=== PATIENT | female | born 1985 | race Caucasian/White ===

== ENCOUNTER 2023-01-25 08:17 | Outpatient (CLI) | payer OTHER, SELFPAY | END 2023-01-25 08:18 | disposition home or self-care (01) | PROVIDERS: PCP Physician Assistant Medical; Visit Provider Family Medicine | DX: Z00.00 Encounter for general adult medical examination without abnormal findings (principal); E05.90 Thyrotoxicosis, unspecified without thyrotoxic crisis or storm; N39.3 Stress incontinence (female) (male); F41.9 Anxiety disorder, unspecified; L50.9 Urticaria, unspecified; F33.9 Major depressive disorder, recurrent, unspecified; Z13.6 Encounter for screening for cardiovascular disorders | CPT/HCPCS: 80053; 80061; 82150; 83036; 83520; 83690; 83695; 84439; 84443; 86140 ==

== ENCOUNTER 2023-04-19 07:56 | Outpatient (CLI) | payer OTHER, SELFPAY | END 2023-04-19 07:57 | disposition home or self-care (01) | LOC: NFLDREF 04-21 11:36 | PROVIDERS: PCP Physician Assistant Medical; Referring Provider Physician Assistant Medical; Visit Provider Family Medicine | DX: E05.90 Thyrotoxicosis, unspecified without thyrotoxic crisis or storm (principal); E78.41 Elevated Lipoprotein(a); R53.83 Other fatigue | CPT/HCPCS: 80061; 84439; 84443; 84481 ==

== ENCOUNTER 2023-08-14 08:26 | Outpatient (REF) | payer OTHER, SELFPAY | END 2023-08-14 08:27 | disposition home or self-care (01) | LOC: NFLDREF 08:26 | PROVIDERS: PCP Physician Assistant Medical; Referring Provider Physician Assistant Medical; Visit Provider Family Medicine | DX: E05.90 Thyrotoxicosis, unspecified without thyrotoxic crisis or storm (principal); E78.41 Elevated Lipoprotein(a) | CPT/HCPCS: 80061; 84439; 84443 ==

== ENCOUNTER 2023-09-12 10:48 | Outpatient (CLI) | payer OTHER, SELFPAY ==
--- NOTE | 2023-09-12 11:00 | US_ITS ---
Patient: SUSAN RUSSO Facility:?[facility] Patient ID:?[id number] Site Patient ID:?[id number]. Site :?[id number] Study:?US-Thyroid -09/12/2023 11:11:45 AM Ordering Physician:TELLO OCHOA Final Report: ADDENDUM CORRECTION: Indications should state: Hyperthyroidism. DM:[id number] 09/13/2023 INDICATION: Hypothyroidism COMPARISON: 09/24/2020 TECHNIQUE: Call scale and color Doppler images were acquired of the thyroid gland. FINDINGS: The thyroid gland demonstrates diffusely heterogeneous echogenicity and has a smooth outer contour. The right lobe measures 5.2 x 1.4 x 2.4 cm and the left lobe measures 5.5 x 1.5 x 2.2 cm in size. Isthmus measures 3 millimeters. There are no suspicious masses or nodules. The color Doppler images demonstrate mildly increased vascularity. There is no evidence of cervical lymphadenopathy or parathyroid mass. IMPRESSION: Diffusely heterogeneous thyroid gland without nodule. Dictated by Fernando Iyer MD @ 09/12/2023 12:36:31 PM Signed by:?Fernando Iyer MD @09/12/2023 12:36:31 PM (Electronic Signature)
== END 2023-09-12 10:49 | disposition home or self-care (01) ==
LOC: US 10:48
PROVIDERS: PCP Physician Assistant Medical; Visit Provider Physician Assistant Medical
DX: E05.90 Thyrotoxicosis, unspecified without thyrotoxic crisis or storm (principal)
CPT/HCPCS: 76536

== ENCOUNTER 2024-08-26 08:29 | Outpatient (CLI) | payer BC, SELFPAY | END 2024-08-26 08:30 | disposition home or self-care (01) | LOC: NFLDREF 08-28 02:57 | PROVIDERS: PCP Physician Assistant Medical; Referring Provider Physician Assistant Medical; Visit Provider Physician Assistant Medical | DX: E05.00 Thyrotoxicosis with diffuse goiter without thyrotoxic crisis or storm (principal); E78.41 Elevated Lipoprotein(a); D64.9 Anemia, unspecified; D72.819 Decreased white blood cell count, unspecified; F41.9 Anxiety disorder, unspecified; N92.0 Excessive and frequent menstruation with regular cycle | CPT/HCPCS: 80053; 80061; 82607; 83540; 83550; 83695; 84443; 84480; 86618 ==

== ENCOUNTER 2024-08-29 12:39 | Outpatient (CLI) | payer BC, SELFPAY ==
[2024-08-29 23:10] LABS: Chlamydia DNA Amplified* NOT DETECTED (No Detected); GC DNA Amplified* NOT DETECTED (No Detected)
[2024-08-31 16:12] LABS: HPV Source Cervix; HPV, High Risk by TMA Not Detected
== END 2024-08-29 12:40 | disposition home or self-care (01) ==
PROVIDERS: PCP Physician Assistant Medical; Visit Provider Physician Assistant Medical
DX: D64.9 Anemia, unspecified (principal); Z12.4 Encounter for screening for malignant neoplasm of cervix
CPT/HCPCS: 87491; 87591; 87624; 87625; 88141; 88142

== ENCOUNTER 2024-09-09 06:58 | Outpatient (CLI) | payer BC, SELFPAY | END 2024-09-09 06:59 | disposition home or self-care (01) | LOC: US 06:59 | PROVIDERS: PCP Physician Assistant Medical; Visit Provider Physician Assistant Medical | DX: N92.0 Excessive and frequent menstruation with regular cycle (principal); R93.89 Abnormal findings on diagnostic imaging of other specified body structures | CPT/HCPCS: 76830; 76856 ==

== ENCOUNTER 2024-10-09 06:06 | Day surgery (SDC) | payer BC, SELFPAY ==
[2024-10-09 06:20] LABS: Ur HCG Qualitative* Negative (Negative)
[2024-10-09 06:44] VITALS: BP 131/85; PULSE 65; RESP 16; TEMP 36.6; O2SAT 99
[2024-10-09 06:45] VITALS: BMI 24.7
[2024-10-09] MEDS: 0.9 % SODIUM CHLORIDE 500 ML 500 ML 100 ML IV (06:56)
[2024-10-09] MEDS: SODIUM CHLORIDE 0.9 % (FLUSH) 10 ML SYRINGE IVF (06:56)
--- NOTE | 2024-10-09 07:07 | W.PM.H&PU ---
History & Physical Update History & Physical Update H&P Reviewed and patient assessed: No changes noted H&P Updates: No interval changes. Consent and plan of care reviewed. Will proceed with planned surgery
[2024-10-09] MEDS: LACTATED RINGERS 1000 ML 1,000 ML 100 ML IV (07:40)
[2024-10-09] MEDS: LIDOCAINE 1%-EPI 1:100,000 20 ML INFILTRATI (07:50)
[2024-10-09 08:10] VITALS: BP 111/62; PULSE 69; RESP 16; TEMP 36.4; O2SAT 99
[2024-10-09 08:15] VITALS: BP 121/72; PULSE 54; RESP 16; O2SAT 99
--- NOTE | 2024-10-09 08:16 | P.ANES_ITS ---
Anesthesia Charges Start Date/Time Anesthesia Start Date: 10/09/24 Anesthesia Start Time: 07:19 Stop Date/Time Anesthesia Stop Date: 10/09/24 Anesthesia Stop Time: 08:15 Coding CPT Codes CPT Codes: ANESTH HYSTEROSCOPE/GRAPH - 60162 ([id number]) P1 - NORMAL HEALTHY PATIENT, QX - COUNTY HISTORIAN DELIA W/ MED DIRECTION, QK - FAMILY SUPPORT SPECIALIST 2-4 CNCRNT ANES PROC
--- NOTE | 2024-10-09 08:16 | W.ANESCHARGE ---
Anesthesia Charges Start Date/Time Anesthesia Start Date: 10/09/24 Anesthesia Start Time: 07:19 Stop Date/Time Anesthesia Stop Date: 10/09/24 Anesthesia Stop Time: 08:15 Coding CPT Codes CPT Codes: ANESTH HYSTEROSCOPE/GRAPH - 17131 ([id number]) P1 - NORMAL HEALTHY PATIENT, QX - DISABILITY RATER DELIA W/ MED DIRECTION, QK - MEDICAL FRONT DESK COORDINATOR 2-4 CNCRNT ANES PROC
--- NOTE | 2024-10-09 08:23 | P.GYNPRC_ITS ---
Procedure Note Time Seen by Provider: 07:30 Date of procedure: 10/09/24 Will [facility] bill your pro fee for this procedure?: Yes Procedure Description: Preoperative diagnosis: 38 year-old with with abnormal uterine bleeding/heavy menstrual cycle likely secondary to polyps. Postoperative diagnosis: Same Procedure: Hysteroscopy, dilation and curettage, Mirena IUD insertion Anesthesia: Conscious sedation with paracervical block. Surgeon:Maria L Garcia MD Estimated blood loss: Less than 5 mL Specimen: Endometrial polyps/ curettings to pathology. Urine output: 20 mL IV fluids: 600 mL Findings: Exam under anesthesia: Cervix palpates normal. Uterus: Anteverted position, 5 week size, mobile, without nodularity/masses palpable. Adnexa were without fullness or nodularity. On hysteroscopy: Irregularities that are likely polyps on the anterior surface of the uterus. Thickened endometrium. Otherwise normal bilateral tubal ostia. Procedure: Katie was taken to the operating where conscious sedation was found to be adequate. She was placed in the dorsal lithotomy position. An exam under anesthesia was performed with findings stated above. She was then prepped and draped in normal sterile manner. A bivalve metal speculum was placed in the vaginal canal. The cervix and vaginal canal appear normal. A paracervical block was placed using 1% lidocaine with epinephrine: 5 mL injected at the 4 and 8 o'clock positions on the cervix. The anterior lip of the cervix was then grasped with a long Allis. The cervix was dilated to Hegar 6. The uterus sounded to 7 cm. The hysteroscope advanced into the uterus and a diagnostic hysteroscopy was per formed with findings stated above. Normal saline was used as the insufflation medium. Soft tissue shaver was used to perform polypectomy and global curetting. The uterus and documented a normal appearing uterine cavity at the end of the procedure. Attention was then turned towards IUD insertion. The IUD is loaded into the insertion tube, inserted to the sounded depth, and the IUD is deployed. Insertion tube was removed. Strings are trimmed to 3 cm. There were no complications with insertion. Hysteroscope used to confirm that the IUD is intrauterine in appropriately position. Fluid deficit at the end of the procedure 75mL. Total fluid: 600 mL The hysteroscope and Allis clamp were removed from the uterus and cervix. Excellent hemostasis noted. Nothing was used for hemostasis. The patient tolerated the procedure well. Sponge, lap and instruments counts were correct at the end of the procedure. The patient was awakened from anesthesia and taken to the recovery area in stable condition. Surgical debrief performed and specimen reviewed at the end of the procedure.
[2024-10-09] MEDS: levonorgestreL (Mirena) IUD 1 EACH INTRAUTERI (08:25)
[2024-10-09 08:30] VITALS: BP 118/76; PULSE 54; RESP 16; O2SAT 99
[2024-10-09 08:45] VITALS: BP 121/77; PULSE 54; RESP 16; O2SAT 100
[2024-10-09 09:00] VITALS: BP 125/81; PULSE 48; RESP 16; O2SAT 100
--- NOTE | 2024-10-09 09:46 | P.ANES_ITS ---
Anesthesia Charges Start Date/Time Anesthesia Start Date: 10/09/24 Anesthesia Start Time: 07:19 Stop Date/Time Anesthesia Stop Date: 10/09/24 Anesthesia Stop Time: 08:15 Coding CPT Codes CPT Codes: ANESTH HYSTEROSCOPE/GRAPH - 84651 ([id number]) QK - LAVENDER FARM WORKER 2-4 CNCRNT ANES PROC, QX - CAR USHER SVC W/ MD MED DIRECTION, P1 - NORMAL HEALTHY PATIENT
--- NOTE | 2024-10-09 09:46 | W.ANESCHARGE ---
Anesthesia Charges Start Date/Time Anesthesia Start Date: 10/09/24 Anesthesia Start Time: 07:19 Stop Date/Time Anesthesia Stop Date: 10/09/24 Anesthesia Stop Time: 08:15 Coding CPT Codes CPT Codes: ANESTH HYSTEROSCOPE/GRAPH - 97775 ([id number]) QK - CT TECHNOLOGIST 2-4 CNCRNT ANES PROC, QX - MATERNITY FLOOR SUPERVISOR SVC W/ MD MED DIRECTION, P1 - NORMAL HEALTHY PATIENT
== END 2024-10-09 09:33 | disposition home or self-care (01) ==
LOC: OR 06:06
PROVIDERS: PCP Physician Assistant Medical; Visit Provider Obstetrics & Gynecology
PROC: 0UDB8ZZ Extraction of Endometrium, Via Natural or Artificial Opening Endoscopic (ICD-10-PCS; CPT 58558; principal; 2024-10-09 07:15)
DX: N93.8 Other specified abnormal uterine and vaginal bleeding (principal); N84.0 Polyp of corpus uteri; R93.89 Abnormal findings on diagnostic imaging of other specified body structures; Z30.430 Encounter for insertion of intrauterine contraceptive device
CPT/HCPCS: 58558; 58300; 00952; 36415; 81025; 85018; 86850; 86900; 86901; 88305; C1782; J1100; J2250; J2405; J2704; J3010; J3490; J7030; J7120; J7298

== ENCOUNTER 2025-03-18 16:36 | Outpatient (CLI) | payer BC, SELFPAY ==
--- NOTE | 2025-03-18 16:45 | CRLHL7_ITS ---
For Patients: As a result of the Century Cures Act, medical imaging exams and procedure reports are released immediately into your electronic medical record. You may view this report before your referring provider. If you have questions, please contact your health care provider. INDICATION: Follow-up right ovarian cyst COMPARISON: 09/09/2024 TECHNIQUE: 2D bell-scale and color Doppler images were acquired of the pelvis using a transabdominal and transvaginal approach. Transvaginal imaging performed to better visualize the endometrial stripe and ovaries. FINDINGS: Sonographic images demonstrate a normal size and smooth outer contour of the uterus. Uterus measures 8.6 cm in length by 4.4 cm in AP diameter by 4.8 cm in transverse dimension. The myometrium has a normal uniform echotexture. The endometrial lining measures 7.4 mm in composite thickness. IUD is present in normal position within the endometrial canal. The right ovary measures 3.7 x 1.9 x 3.7 cm in size and the left ovary measures 1.9 x 2.4 x 1.6 cm. The ovaries demonstrate normal arterial and venous blood flow on color Doppler analysis. There are no suspicious fluid collections within the cul-de-sac. Collapsing nonvascular cyst is present within the right ovary measuring 1.9 x 1.5 x 2.0 cm. IMPRESSION: Collapsing hemorrhagic right ovarian cyst measures 1.9 x 1.5 x 2.0 cm. Dictated by Fernando Iyer MD @ 03/19/2025 7:45:36 AM (Electronically Signed)
== END 2025-03-18 16:37 | disposition home or self-care (01) ==
LOC: US 16:37
PROVIDERS: PCP Physician Assistant Medical; Visit Provider Obstetrics & Gynecology
DX: N93.9 Abnormal uterine and vaginal bleeding, unspecified (principal); N83.201 Unspecified ovarian cyst, right side
CPT/HCPCS: 76830; 76856